=== PATIENT | female | born 1955 | race Caucasian/White ===

== ENCOUNTER 2016-12-08 15:37 | Emergency (ER) | payer BC, MEDICAID ==
[~2016-12-08] VITALS: Ht 170.2 cm; Wt 73.0 kg
[2016-12-08 15:54] VITALS: BP 121/72
== END 2016-12-08 16:17 | disposition home or self-care (01) ==
LOC: EDUNIT# 15:37 → ER 15:40
DX: L03.211 Cellulitis of face (principal); K02.9 Dental caries, unspecified

== ENCOUNTER 2019-05-07 09:43 | Emergency (ER) | payer MEDICARE, MEDICAID ==
[~2019-05-07] VITALS: Ht 170.2 cm; Wt 63.5 kg
[2019-05-07 10:50] VITALS: BP 138/88
[2019-05-07] MEDS ORDERED: KETOROLAC TROMETH 60MG/2ML VIAL IM ONE (11:15)
[2019-05-07] MEDS ORDERED: MORPHINE SULFATE 4 MG/ML SYR/VIAL IM ONE (11:15)
== END 2019-05-07 13:32 | disposition home or self-care (01) ==
LOC: ER 09:43 → EDBD 09:43 → ER 13:14
DX: M79.601 Pain in right arm (principal); M89.8X8 Other specified disorders of bone, other site; Z86.39 Personal history of other endocrine, nutritional and metabolic disease; Z88.6 Allergy status to analgesic agent
CPT/HCPCS: 73110; 73130; 93005; 96372; 99283; J1885